=== PATIENT | male | born 1975 | race Caucasian/White ===

== ENCOUNTER 2016-05-25 14:02 | Emergency (ER) | payer MEDICARE, OTHER ==
[2016-05-25 14:27] VITALS: BP 128/87
--- NOTE | 2016-05-25 14:39 | ED Physician Documentation ---
Lower Extremity Problem - HISTORIAN Historian: patient - HPI Stated Complaint: right knee swelling and pain Chief Complaint: Lower Extremity Problem Additional Information: chronic problem, with 4 recent scopes, has chronic swelling, no new pain, but ortho nurse told him he needed an xray. Location of Injury: R knee Onset: days ago Timing: still present Duration: constant Recent Injury: No Severity: mild Quality: pain, swelling Exacerbated By: walking Relieved By: nothing Associated Symptoms: denies: chest pain, shortness of breath Further Comments: no - ROS CONST: no problems MS/SKIN/LYMPH: none CVS/RESP: none GI/: none EYES/ENT: none NERUO/PSYCH: difficulty walking - PAST HX Past History: lumbar disc disease, chronic back pain PE Risk Factors: none Surgeries/Procedures: back surgery, knee surgery Immunizations: UTD Allergies/Adverse Reactions: Allergies Allergy/AdvReac Type Severity Reaction Status Date / Time No Known Allergies Allergy Verified 10/29/15 15:21 Home Medications: Ambulatory Orders Medication Instructions Recorded Cyclobenzaprine HCl 10 mg PO TID 04/20/15 [Cyclobenzaprine HCl] Gabapentin [Neurontin] 300 mg PO TID 04/20/15 oxyCODONE HCL [Percolone] 10 mg PO Q4-6 PRN 10/29/15 - SOCIAL HX Smoking History: cigarettes Alcohol Use: none Drug Use: none - FAMILY HX Family History: none - VITAL SIGNS Vital Signs: Vital Signs Temp Pulse Resp BP Pulse Ox 99.3 F 123 H 18 128/87 97 05/25/16 14:26 05/25/16 14:26 05/25/16 14:26 05/25/16 14:26 05/25/16 14:26 - REVIEWED ASSESSMENTS Nursing Assessment Reviewed: Yes Vitals Reviewed: Yes ED Results Lab/Radiology - Radiology Radiology Impressions: negative fracture / dislocation. - Orders Orders: ED Orders Category Date Time Status KNEE 3 VIEWS [RAD] Stat Exams 05/25/16 14:36 Ordered Lower Extremity Problem - EXAM General Appearance: no distress Hips: bilateral hip: non-tender, normal inspection, normal range of motion, no evidence of injury Legs: bilateral: non-tender, normal inspection, normal range of motion, no evidence of injury Knees: right: joint effusion, pain, swelling Ankle: bilateral: non-tender, normal inspection, normal range of motion Foot: bilateral foot: non-tender, normal inspection, normal range of motion Neuro/Tendon: normal sensation, normal motor functions EENT: ENT inspection normal RESPIRATORY: no resp distress CVS: reg rate & rhythm JOINT: effusion VASCULAR: no vascular compromise NEURO/PSYCH: oriented X3, mood/affect nml, cognition normal SKIN: warm/dry, normal color BACK: normal inspection Discharge Clincal Impression: Knee arthropathy Knee bursitis Qualifiers: Knee bursitis location: unspecified Laterality: right Qualified Code(s): M70.51 - Other bursitis of knee, right knee Home Medications: Ambulatory Orders Cyclobenzaprine HCl [Cyclobenzaprine HCl] 10 mg PO TID 04/20/15 Gabapentin [Neurontin] 300 mg PO TID 04/20/15 oxyCODONE HCL [Percolone] 10 mg PO Q4-6 PRN 10/29/15 Condition: Good Disposition: 01 HOME, SELF-CARE Decision to Admit: NO Date of Decison to Admit: 05/25/16 Decision Time: 14:51
[2016-05-25] MEDS ORDERED: methylPREDNISolone SOD SUCC 125 MG/2 ML VIAL IM ONE (14:51)
[2016-05-25] MEDS ORDERED: KETOROLAC TROMETHAMINE 60 MG/2 ML VIAL IM ONE (14:52)
--- NOTE | 2016-05-25 20:00 | Diagnostic Imaging Report ---
Report Submission Date: May 25, 2016 3:00:56 PM CDT Patient ~ Study Name: JONI BIRD ~ Date: May 25, 2016 2:41:30 PM CDT ~ Modality Type: CR Gender: M ~ Description: LOWER EXTREMITY : 75 ~ Institution: [facility] Physician: FILIBERTO LI ~ ~ ~ ~ 3 views of the right knee History: RT KNEE, PAIN AND EDEMA, PRIOR KNEE SCOPE IN 2015 Findings: No comparison studies No evidence of acute fracture or dislocation of the right knee Small suprapatellar effusion Impression: No evidence of acute fracture or dislocation right knee Small suprapatellar effusion Narrowing of the medial knee joint space ~ Electronically signed on May 25, 2016 3:00:56 PM CDT by: Trish FRANKLIN
== END 2016-05-25 15:12 | disposition home or self-care (01) ==
LOC: ED 14:02
DX: M70.51 Other bursitis of knee, right knee (principal)
CPT/HCPCS: 73562; J1885; J2930; 96372; 99283

== ENCOUNTER 2016-10-19 12:46 | Emergency (ER) | payer MEDICARE, OTHER ==
[2016-10-19] MEDS: KETOROLAC TROMETHAMINE 60 MG/2 ML VIAL IM ONE (13:30)
--- NOTE | 2016-10-19 13:30 | ED Physician Documentation ---
Skin Rash - HISTORIAN Historian: patient - HPI Stated Complaint: painful rash Chief Complaint: Skin Rash Onset: other (yesterday ) Timing: worse Duration: worse Location: neck Identified Cause?: No Where: home Further Comments: yes (41 year old male patient presents with complaints of painful rash which started on his neck and spread around his left shoulder.) - ROS CONST: none CVS/RESP: none EYES/ENT: none GI/: none MS/SKIN/LYMPH: neck pain (related to rash) NEURO/PSYCH: none - PAST HX Past History: other (chronic right knee pain) Allergies/Adverse Reactions: Allergies Allergy/AdvReac Type Severity Reaction Status Date / Time No Known Allergies Allergy Verified 10/19/16 13:00 Home Medications: Ambulatory Orders Medication Instructions Recorded Cyclobenzaprine HCl 20 mg PO HS 04/20/15 [Cyclobenzaprine HCl] Gabapentin [Neurontin] 600 mg PO HS 04/20/15 Prednisone 40 mg PO DAILY #16 tablet 10/19/16 Valacyclovir HCl [Valtrex] 1,000 mg PO TID #21 tablet 10/19/16 - SOCIAL HX Smoking History: cigarettes - FAMILY HX Family History: denies: none - VITAL SIGNS Vital Signs: Vital Signs Temp Pulse Resp BP Pulse Ox 99.0 F 78 18 138/99 98 10/19/16 13:59 10/19/16 13:59 10/19/16 13:59 10/19/16 13:59 10/19/16 13:59 - REVIEWED ASSESSMENTS Nursing Assessment Reviewed: Yes Vitals Reviewed: Yes Progress - Progress Progress: Reviewed patient diagnosis of shingles, extensive education on treatment and transmission. ED Results Lab/Radiology - Lab Results Lab Results: Lab Results 10/19/16 13:31 Sodium 141 mmol/L mmol/L (136-145) Potassium 3.6 mmol/L mmol/L (3.5-5.0) Chloride 106 mmol/L mmol/L (98-110) Carbon Dioxide 29 mmol/L mmol/L (20-32) BUN 6 mg/dL L mg/dL (10-26) Creatinine 0.9 mg/dL mg/dL (0.4-1.5) Estimated Creat Clear 152 Est GFR ( Amer) > 60 (60 - ) Est GFR (Non-Af Amer) > 60 (60 - ) Glucose 103 mg/dL H mg/dL (70-99) Calcium 10.5 mg/dL mg/dL (8.5-10.5) - Orders Orders: ED Orders Category Date Time Status BMP [BMP] Stat Lab 10/19/16 13:31 Completed Ketorolac Tromethamine [Toradol] Med 10/19/16 13:12 Discontinued 60 mg IM NOW ONE Nalbuphine HCl [Nubain] Med 10/19/16 13:13 Discontinued 10 mg IM NOW ONE Skin Rash Physical Exam - EXAM General Appearance: mild distress Skin: warm,dry Location: posterior neck, other (left shoulder, along C3 Dermatone) Character: papular, patchy, erythematous Symptoms: warmth, tenderness, weeping Extremities: non-tender, nml ROM, no edema, legs (brace on right knee, using 1 crutch) Respiratory: no resp distress, chest non-tender, breath sounds normal CVS: reg. rate & rhythm, heart sounds nml Neuro/Psych: oriented x3, CN's nml as tested, motor nml, sensation nml, mood/ affect nml Discharge Clincal Impression: Shingles Qualifiers: Herpes zoster complications: without complications Qualified Code(s): B02.9 - Zoster without complications Prescriptions: Prednisone 40 mg PO DAILY #16 tablet Valacyclovir HCl [Valtrex] 1,000 mg PO TID #21 tablet Referrals: Primary Doctor,No [Primary Care Provider] - 2 Days Additional Instructions: upper stitcher your prescription and start it TODAY. You may want to try over the counter Capsaicin cream Follow up with your primary care provider in 3-5 days for a BP recheck, to discuss the Shingles vaccine and recheck your rash. Home Medications: Ambulatory Orders Cyclobenzaprine HCl [Cyclobenzaprine HCl] 20 mg PO HS 04/20/15 Gabapentin [Neurontin] 600 mg PO HS 04/20/15 Prednisone 40 mg PO DAILY #16 tablet 10/19/16 Valacyclovir HCl [Valtrex] 1,000 mg PO TID #21 tablet 10/19/16 Condition: Stable Disposition: 01 HOME, SELF-CARE Decision to Admit: NO Decision Time: 13:35
[2016-10-19] MEDS: NALBUPHINE HCL 10 MG/1 ML IM ONE (13:31)
[2016-10-19 13:51] LABS: eGFR (African) > 60; eGFR (Non-African) > 60
[2016-10-19 14:05] VITALS: BP 138/99
== END 2016-10-19 13:59 | disposition home or self-care (01) ==
LOC: ED 12:46
DX: B02.9 Zoster without complications (principal)
CPT/HCPCS: 80048; J1885; J2300; 96372; 99283

== ENCOUNTER 2016-11-28 17:07 | Emergency (ER) | payer MEDICARE, OTHER ==
--- NOTE | 2016-11-28 17:25 | ED Physician Documentation ---
General Adult - HISTORIAN Historian: patient - HPI Stated Complaint: Chronic Right Knee Pain Chief Complaint: General Adult Timing: still present Further Comments: yes (Pt is a 41 yo male with chronic L knee pain. Pain has been worse today. Pt has Mcguffey for pain at home. Pt has been using a cane. He has an appointment with his orthopedist pending.) - ROS CONST: no problems EYES/ENT: none CVS/RESP: none GI/: none MS/SKIN/LYMPH: other (R knee pain) - PAST HX Past History: other (chronic R knee pain, multiple R knee surgeries) Surgeries/Procedures: other (mult R knee surgeries) Allergies/Adverse Reactions: Allergies Allergy/AdvReac Type Severity Reaction Status Date / Time No Known Allergies Allergy Verified 10/19/16 13:00 Home Medications: Ambulatory Orders Medication Instructions Recorded Cyclobenzaprine HCl 20 mg PO HS 04/20/15 [Cyclobenzaprine HCl] Gabapentin [Neurontin] 600 mg PO HS 04/20/15 Hydrocodone/Acetaminophen 11/28/16 [Hydrocodon-Acetaminophn 10-325] - SOCIAL HX Smoking History: cigarettes - FAMILY HX Family History: No - VITAL SIGNS Vital Signs: Vital Signs Temp Pulse Resp BP Pulse Ox 98.1 F 119 H 20 119/83 99 11/28/16 17:10 11/28/16 17:10 11/28/16 17:10 11/28/16 17:10 11/28/16 17:10 - REVIEWED ASSESSMENTS Nursing Assessment Reviewed: Yes Vitals Reviewed: Yes Progress - Progress Progress: Toradol 60 mg IM wear knee brace, use crutches as much as possible to avoid wgt bearing until f/u with orthopedist NSAIDS Home pain meds General Adult Physical Exam - PHYSICAL EXAM GENERAL APPEARANCE: moderate distress NECK: normal inspection, supple RESPIRATORY: no resp distress, breath sounds normal CVS: reg rate & rhythm, heart sounds normal BACK: normal inspection, no CVA tenderness SKIN: warm/dry, normal color EXTREMITIES: other (R knee tenderness, FROM) NEURO: oriented X3, motor nml, sensation nml Discharge Clincal Impression: Chronic knee pain Qualifiers: Laterality: right Qualified Code(s): M25.561 - Pain in right knee Referrals: Primary Doctor,No [Primary Care Provider] - 2 Days Condition: Good Decision to Admit: NO Decision Time: 17:42
[2016-11-28] MEDS: KETOROLAC TROMETHAMINE 60 MG/2 ML VIAL IM ONE (17:40)
[2016-11-28 18:26] VITALS: BP 118/68
== END 2016-11-28 18:24 ==
LOC: ED 17:07
DX: M25.561 Pain in right knee (principal)
CPT/HCPCS: 96372; 99283; J1885

== ENCOUNTER 2017-01-27 09:34 | Emergency (ER) | payer MEDICARE, OTHER ==
[2017-01-27] MEDS ORDERED: ASPIRIN 81 MG CHEW TAB PO ONE (09:46)
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
[2017-01-27] MEDS ORDERED: 0.9 % SODIUM CHLORIDE 1,000 ML IV ONE (09:49)
[2017-01-27] MEDS ORDERED: LORazepam 2 MG/ML VIAL ONE (09:54)
[2017-01-27] MEDS ORDERED: LORazepam 2 MG/ML VIAL IVP ONE ×2 (09:54→11:23)
[2017-01-27 10:00] LABS: BASOPHILS % 0.3 (0.0-1.5); EOSINOPHILS % 1.4 % (0.0-6.8); MEAN CORPUSCULAR HEMOGLOBIN 34.7 pg (28.0-34.0); MEAN CORPUSCULAR VOLUME 92.5 fl (80.0-100.0); MONOCYTES % 4.9 % (0.0-11.0); NEUTROPHILS # 4.8 # k/uL (1.4-7.7)
[2017-01-27 10:17] LABS: eGFR (African) > 60; eGFR (Non-African) > 60
[2017-01-27] MEDS ORDERED: KETOROLAC TROMETHAMINE 30 MG/1ML VIAL ONE (10:22)
[2017-01-27] MEDS ORDERED: KETOROLAC TROMETHAMINE 30 MG/1ML VIAL IVP ONE (10:23)
[2017-01-27] MEDS ORDERED: POTASSIUM CHLORIDE 20 MEQ TABLET.ER PO ONE (10:56)
[2017-01-27 12:28] VITALS: BP 146/100
--- NOTE | 2017-01-27 14:56 | Diagnostic Imaging Report ---
REHANA CLEMENTS [facility] [id number] [facility] [address] [address] Report Submission Date: Jan 27, 2017 10:15:55 AM STRIP PRESSER Patient Study Name: JONI BIRD Date: Jan 27, 2017 9:58:14 AM STRIP PRESSER Modality Type: CR Gender: M Description: CHEST : 75 Institution: [facility] Physician: REHANA CLEMENTS Examination: Portable chest History: Chest discomfort Comparison exam: None provided. Findings: Single view of the chest demonstrates a normal cardiac and mediastinal silhouette. Lung matamoros without focal infiltrate. No blunting of the costophrenic margins. Osseous structures are appropriate for age. Impression: No acute pulmonary process. Electronically signed on Jan 27, 2017 10:15:55 AM STRIP PRESSER by: Jordy FRANKLIN
== END 2017-01-27 11:27 | disposition home or self-care (01) ==
LOC: ED 09:34
DX: R07.89 Other chest pain (principal); E87.6 Hypokalemia; F41.9 Anxiety disorder, unspecified; F15.980 Other stimulant use, unspecified with stimulant-induced anxiety disorder
CPT/HCPCS: 71010; 80053; 82550; 84484; 85025; 85379; 85610; A9270; G0480; G0481; J1885; J2060; J7030; 80320; 80377; 96361; 96374; 96375; 99283; S1016